=== PATIENT | female | born 1965 | race Caucasian/White ===

== ENCOUNTER → 2017-04-14 | Outpatient (CLI) | payer BC ==
--- NOTE | 2017-04-14 20:27 | WWHP ---
DATE OF DICTATION: 04/14/2017 CHIEF COMPLAINT: The patient is here for her routine gynecologic exam. HISTORY OF PRESENT ILLNESS: This is a 51-year-old G4, P3-1-0-3 with an LMP of 08/2014. Her last pelvic exam was in 2014. She is without gynecologic complaints. She denies any intermenstrual bleeding. Her last mammogram was on 02/26/17 and follow-up left diagnostic mammogram and left ultrasound were recommended in 6 months. PAST MEDICAL HISTORY: 1. Skin cancer which was basal cell from her back in the past. 2. Mitral valve prolapse which causes her no problems. 3. History of microscopic hematuria with a thorough workup by Dr. Marinelli. Dr. Chasity Ramires is her primary care physician. MEDICATIONS: Multivitamin daily, but she does not consistently take them. ALLERGIES: NO KNOWN DRUG ALLERGIES. PAST SURGICAL HISTORY: 1. D&C for bleeding. 2. Rhinoplasty in the past. PAST OB HISTORY: Three term vaginal deliveries, but she did have one 20-week pre-term delivery which did not survive. PAST LIGHTER HISTORY: She has been menopausal since 2013 and has no history of STDs. SOCIAL HISTORY: She denies tobacco and drug use and has about 1 to 2 alcoholic drinks per week. 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 FAMILY HISTORY: Sister had breast cancer at age 62. Brother had skin cancer. Father had an VT and chronic hypertension. Mother had cataracts. REVIEW OF SYSTEMS: She denies respiratory, cardiac or GI problems. PHYSICAL EXAM: Blood pressure 139/72. Height 5 feet 3 inches. Weight 115 pounds. Temperature 94.2, pulse 83. This is a well-developed, well-nourished white female who is alert and oriented x3, in no acute distress. HEENT is within normal limits. NECK: Supple without mass or thyromegaly. CHEST AND LUNGS: Clear to auscultation. HEART: Regular rate and rhythm. Breasts are without mass or discharge. Axillary exam is negative for adenopathy. BACK: Negative for CVA tenderness. ABDOMEN: Soft, nontender, without palpable masses. PELVIC EXAM: Normal external genitalia without significant atrophy. Cervix: there is benign-appearing mucosal growth at the right edge of the cervical os. This is smooth and slightly darker than the surrounding mucosa. This measures approximately 8 x 5 mm and appears very benign. There is no unusual discharge. There is no cervical motion tenderness. There is no evidence of prolapse. The uterus is slightly retroverted, nongravid size and nontender. There are no palpable adnexal masses or tenderness. Rectovaginal exam is negative for mass or tenderness and is negative for occult blood. EXTREMITIES: Nontender. IMPRESSION: A 51-year-old menopausal female with a benign-appearing small mucosal growth at the cervical os. Differential diagnosis will include benign mucosal growth, cervical polyp and nabothian cyst. All of these would be benign. PLAN: 1. Pap smear was performed. 2. Self breast examination was discussed. 3. We discussed the cervical mucosal growth. We have discussed the option of removing this for evaluation. We have also discussed conservative management. We have decided to proceed with conservative management. She will return in 6 months for recheck to make sure it has not changed, and also she was instructed to call if she is having problems, including post-coital or intermenstrual bleeding. 4. She will also have a mammogram done with ultrasound on the left side in 6 months as well. 5. She will also return in one year and p.r.n. MTDD
== END | disposition home or self-care (01) ==
LOC: WWCWWP 10:44
PROVIDERS: ATTEND Obstetrics & Gynecology
DX: Z53.9 Procedure and treatment not carried out, unspecified reason (principal)

== ENCOUNTER → 2018-03-30 | Outpatient (CLI) | payer BC ==
--- NOTE | 2018-03-31 08:28 | MM ---
Reason for exam: follow-up at short interval from prior study. Last mammogram was performed 7 months ago. History: Patient is postmenopausal and has history of other cancer at age 45. Family history of breast cancer in 2 maternal aunts and breast cancer in sister at age 63. Physical Findings: Nurse Summary: 1cm nodule in the left breast at 9 o'clock (nurse desiree). MG 3D Diag Mammo W/Cad NAYANA Bilateral CC and MLO view(s) were taken. Prior study comparison: September 08, 2017, left breast MG 3d diag mammo w/cad LT. February 26, 2017, bilateral MG diagnostic mammo w CAD NAYANA. The breast tissue is heterogeneously dense. This may lower the sensitivity of mammography. There is chronic nodularity in the right breast. Stable 1 o'clock central left breast nodularity for 2 years now. These results were verbally communicated with the patient and result sheet given to the patient on 03/30/18. ASSESSMENT: Incomplete: need additional imaging evaluation, BI-RAD 0 RECOMMENDATION: Ultrasound of the left breast.
--- NOTE | 2018-03-31 08:38 | USB ---
Reason for exam: additional evaluation requested from abnormal screening. History: Patient is postmenopausal and has history of other cancer at age 45. Family history of breast cancer in 2 maternal aunts and breast cancer in sister at age 63. US Breast LT Left complete breast ultrasound includes all four quadrants, the retroareolar region and axilla. Finding demonstrates mild duct ectasia at the nipple. Noted at the medial subareolar region, corresponding to the nurse detected palpable site. Otherwise, no solid or cystic lesion. The previous 1 o'clock lesion has resolved. These results were verbally communicated with the patient and result sheet given to the patient on 03/30/18. ASSESSMENT: Benign, BI-RAD 2 RECOMMENDATION: Routine screening mammogram of both breasts in 1 year. TETED
== END | disposition home or self-care (01) ==
LOC: RADMAMWWP 13:18
PROVIDERS: ATTEND Obstetrics & Gynecology
DX: R92.8 Other abnormal and inconclusive findings on diagnostic imaging of breast (principal)
CPT/HCPCS: 77062; 77066

== ENCOUNTER → 2020-10-23 | Outpatient (CLI) | payer SELFPAY ==
[2020-10-23 14:06] VITALS: BP 136/74; PULSE 89; RESP 18; TEMP 98.1
--- NOTE | 2020-10-23 14:58 | P.HPOB ---
History of Present Illness H&P Date: 10/23/20 Chief Complaint: The patient is here for her routine gynecologic exam and ma mmogram. This is a 54-year-old with an LMP of 2013. The patient is without gynecologic complaints and denies any postmenopausal bleeding. Her last Pap smear was done on 04/14/2017 which showed ASCUS with negative high-risk HPV testing. She also has a known cervical polypoid growth which she states is not causing her any problems or causing any bleeding. Review of Systems She has lost about 7 pounds over the past 3 years and she attributes this to increased stress related to marital problems. She denies respiratory or cardiac problems. GI: Occasional nausea which she attributes to stress. She is seeing a doctor for this later this month. Past Medical History Past Medical History: Cancer, Mitral Valve Prolapse (MVP) Additional Past Medical History / Comment(s): Basal cell skin cancer. History of microscopic hematuria (saw Dr. Marinelli). 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 Previous 20 week delivery which did not survive. History of Any Multi-Drug Resistant Organisms: None Reported Additional Past Surgical History / Comment(s): D&C and rhinoplasty. Past Psychological History: No Psychological Hx Reported Smoking Status: Never smoker Past Alcohol Use History: Occasional (2 per week) Past Drug Use History: None Reported Additional History: She has been since 2001 and she states she has had some marital problems especially since approximately 2016. 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 - Past Family History Sister(s) Family Medical History: Cancer Additional Family Medical History / Comment(s): Breast cancer at age 62. Brother(s) Family Medical History: Cancer Additional Family Medical History / Comment(s): Skin cancer. Father Family Medical History: Hypertension, Myocardial Infarction ([place]) Mother Additional Family Medical History / Comment(s): Cataracts. Medications and Allergies Home Medications Medication Instructions Recorded Confirmed Type Ascorbic Acid [Vitamin C] 250 mg PO DAILY 10/23/20 10/23/20 History Cholecalciferol [Vitamin D3 (25 2,000 unit PO DAILY 10/23/20 10/23/20 History Mcg = 1000 Iu)] Multivitamin [Multivitamins Adult 1 each PO DAILY 10/23/20 10/23/20 History Gummies] Valerian Root 100 mg PO DAILY 10/23/20 10/23/20 History Vitamin A 8,000 unit PO DAILY 10/23/20 10/23/20 History Allergies Allergy/AdvReac Type Severity Reaction Status Date / Time No Known Allergies Allergy Unverified 10/23/20 14:01 Exam Vital Signs Temp Pulse Resp BP Pulse Ox 10/23/20 14:04 98.1 F 89 18 136/74 100 Intake and Output 10/22/20 10/23/20 10/23/20 22:59 06:59 14:59 Other: Weight 48.988 kg Height 5 feet 2 inches, weight 108 pounds, BMI 19.8. This is a well-developed well-nourished white female who is alert and oriented times 3 in no acute distress. HEENT: Within normal limits. NECK: Supple without mass or thyromegaly. CHEST AND LUNGS: Clear to auscultation. HEART: Regular rate and rhythm. BREASTS: Are without mass or discharge. AXILLARY EXAM: Negative for adenopathy. BACK: Negative for CVA tenderness. ABDOMEN: Soft, nontender, without palpable masses. PELVIC EXAM: Normal external genitalia with mild atrophy. Vagina appear normal with mild atrophy. The cervix has a polypoid growth at approximately the 8 o'clock position which is smooth and appears fluid-filled and measures approximate 10 x 7 mm. It seems to be on a stalk which is thin. There is no unusual discharge. There is no evidence of prolapse. The uterus is midposition, nongravid size and nontender. There are no palpable adnexal masses or tenderness. RECTAL EXAM: Rectovaginal exam is negative for mass or tenderness and is negative for occult blood. EXTREMITIES: Nontender. IMPRESSION: 1. 54-year-old menopausal female with abundant benign-appearing cervical polyp at the 8 o'clock position. It seems to be mobile and on a thin stalk. Differential diagnosis includes cervical polyp and possible prolapsed endometrial polyp. The patient states this is asymptomatic. This was seen at her prior examination in 2017. 2. Previous ASCUS Pap smear with negative high-risk HPV testing on 04/14/2017. PLAN: 1. Pap smear cotest and was performed. 2. Self breast awareness was discussed with the patient. 3. Screening mammogram will be done today. 4. Osteoporosis prevention was discussed. I have stressed the importance of adequate calcium, vitamin D and regular exercise. Recommended amounts of calcium and vitamin D were also discussed. 5. We have discussed the option of removal of the cervical polypoid growth. She states it is increased slightly in size, but she states it is not causing her any problems and is declining removal at this time. She will let me know if she changes her mind about this or if it is causing problems. 6. I have recommended screening colonoscopy based on her age and since she has not had this done before. She states she will discuss this with her PCP Dr. Ramires. 7. She is declining any STD testing at this time. 8. She was advised to return in one year for her annual well woman exam.
--- NOTE | 2020-10-24 13:42 | MM ---
Reason for exam: screening (asymptomatic). Last mammogram was performed 2 years and 7 months ago. History: Patient is postmenopausal and has history of other cancer at age 45. Family history of breast cancer in 2 maternal aunts and breast cancer in sister at age 63. Physical Findings: A clinical breast exam by your physician is recommended on an annual basis and results should be correlated with mammographic findings. MG 3D Screening Mammo W/Cad Bilateral CC and MLO view(s) were taken. Prior study comparison: March 30, 2018, bilateral MG 3d diag mammo w/cad NAYANA. September 08, 2017, left breast MG 3d diag mammo w/cad LT. The breast tissue is heterogeneously dense. This may lower the sensitivity of mammography. There is chronic nodularity in the right breast. Nodular asymmetric density superior left MLO view is more defined and incompletely disperses on 3D. ASSESSMENT: Incomplete: need additional imaging evaluation, BI-RAD 0 RECOMMENDATION: Special view mammogram of the left breast. (3D) If lesion persists on supplemental views, image directed ultrasound is recommended. [facility] will attempt to contact patient to return for supplemental views and ultrasound if indicated.
== END | disposition home or self-care (01) ==
LOC: WWCWWP 13:47
PROVIDERS: ATTEND Obstetrics & Gynecology
DX: Z12.31 Encounter for screening mammogram for malignant neoplasm of breast (principal)
CPT/HCPCS: 77063; 77067

== ENCOUNTER → 2020-11-09 | Outpatient (CLI) | payer OTHER ==
--- NOTE | 2020-11-12 08:37 | MM ---
Reason for exam: additional evaluation requested from abnormal screening. Last mammogram was performed 1 month ago. History: Patient is postmenopausal and has history of other cancer at age 45. Family history of breast cancer in 2 maternal aunts and breast cancer in sister at age 63. Took hormonal contraceptives beginning at age 35. Physical Findings: Nurse did not find any significant physical abnormalities on exam. MG 3D Work Up W/Cad LT LM and spot compression MLO view(s) were taken of the left breast. Prior study comparison: October 23, 2020, bilateral MG 3d screening mammo w/cad. March 30, 2018, bilateral MG 3d diag mammo w/cad NAYANA. The breast tissue is heterogeneously dense. This may lower the sensitivity of mammography. There is no discrete abnormality including area of concern left upper MLO view. No significant new findings when compared with previous films. These results were verbally communicated with the patient and result sheet given to the patient on 11/09/20. ASSESSMENT: Benign, BI-RAD 2 RECOMMENDATION: Return to routine screening mammogram schedule for both breasts.
== END | disposition home or self-care (01) ==
LOC: RADMAMWWP 14:59
PROVIDERS: ATTEND Obstetrics & Gynecology
DX: R92.8 Other abnormal and inconclusive findings on diagnostic imaging of breast (principal)
CPT/HCPCS: 77061; 77065

== ENCOUNTER → 2022-12-02 | Outpatient (CLI) | payer OTHER ==
[2022-12-02 10:37] VITALS: BP 122/87; PULSE 89; RESP 16; TEMP 97.8
--- NOTE | 2022-12-02 11:31 | P.HPOB ---
History of Present Illness H&P Date: 12/02/22 Chief Complaint: The patient is here for her routine gynecologic exam and ma mmogram. This is a 57-year-old 103 with an LMP of 2013. The patient is without gynecologic complaints and denies any postmenopausal bleeding. She has a known cervical polyp which has been followed conservatively. She desires to continue conservative management at this time. Review of Systems She is getting about 8 pounds over the past year. She denies respiratory or cardiac problems. GI: Occasional loose stools which seems to occur when she has greater stress. She has been under greater stress since 2017, when marital problems became more stressful. Past Medical History Past Medical History: Cancer, Mitral Valve Prolapse (MVP) Additional Past Medical History / Comment(s): Basal cell skin cancer. History of microscopic hematuria (saw Dr. Marinelli). 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 Previous 20 week delivery which did not survive. History of Any Multi-Drug Resistant Organisms: None Reported Additional Past Surgical History / Comment(s): D&C and rhinoplasty. Past Psychological History: No Psychological Hx Reported Smoking Status: Never smoker Past Alcohol Use History: Occasional (3 glasses of wine per week.) Past Drug Use History: None Reported Additional History: She is currently from her and they have been having menstrual problems since 2017. During this time she has not had sexual relations with anyone but her . 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 - Past Family History Sister(s) Family Medical History: Cancer Additional Family Medical History / Comment(s): Breast cancer at age 62. Brother(s) Family Medical History: Cancer Additional Family Medical History / Comment(s): Skin cancer. Father Family Medical History: Hypertension, Myocardial Infarction ([place]) Mother Additional Family Medical History / Comment(s): Cataracts. Maternal aunt and maternal cousin had breast cancer. Medications and Allergies Home Medications Medication Instructions Recorded Confirmed Type Ascorbic Acid [Vitamin C] 250 mg PO DAILY 10/23/20 12/02/22 History Cholecalciferol [Vitamin D3 (25 2,000 unit PO DAILY 10/23/20 12/02/22 History Mcg = 1000 Iu)] Multivitamin [Multivitamins Adult 1 each PO DAILY 10/23/20 12/02/22 History Gummies] Vitamin A [Vitamin A (8,000 Units 8,000 unit PO DAILY 10/23/20 12/02/22 History = 2,400 MCG)] Allergies Allergy/AdvReac Type Severity Reaction Status Date / Time No Known Allergies Allergy Unverified 12/02/22 10:31 Exam Vital Signs Temp Pulse Resp BP Pulse Ox 12/02/22 10:32 97.8 F 89 16 122/87 97 Intake and Output 12/01/22 12/02/22 12/02/22 22:59 06:59 14:59 Other: Weight 52.617 kg Height 5 feet 3 inches, weight 116 pounds, BMI 20.5. This is a well-developed well-nourished white female who is alert and oriented times 3 in no acute distress. HEENT: Within normal limits. NECK: Supple without mass or thyromegaly. CHEST AND LUNGS: Clear to auscultation. HEART: Regular rate and rhythm. BREASTS: Are without mass or discharge. AXILLARY EXAM: Negative for adenopathy. BACK: Negative for CVA tenderness. ABDOMEN: Soft, nontender, without palpable masses. PELVIC EXAM: Normal external genitalia with mild atrophy. Vagina appear normal is mild atrophy. The cervix is anterior and there is a stable benign-appearing endocervical polyp measuring approximately 10 x 7 mm. The cervix is otherwise unremarkable. There is no unusual discharge. There is no evidence of prolapse. The uterus is retroverted, nongravid size and nontender. There are no palpable adnexal masses or tenderness. RECTAL EXAM: Rectovaginal exam is negative for mass or tenderness and is negative for occult blood. EXTREMITIES: Nontender. IMPRESSION: 1. 57-year-old menopausal female with benign-appearing cervical polyp at the endocervix which is stable in size and measures approximately 10 x 7 mm. This is asymptomatic. 2. Family history of breast cancer and a sister, maternal aunt, and maternal cousin. PLAN: 1. Pap smear was deferred since she had a negative Pap smear cotest on 10/23/2020. 2. Self breast awareness was discussed with the patient. We have also discussed symptoms associated with inflammatory breast cancer. 3. Screening mammogram will be done today. 4. We have discussed the cervical polyp. We have discussed how it can be removed, but she would like to continue with conservative management. She will call if she is having any problems such as vaginal bleeding or unusual discharge. 5. She is currently from her . She states she does not think there is any need to do STD testing at this time. 6. We have discussed her family history of breast cancer. We have also discussed the option of cancer genetic counseling and testing. She will consider this and would let me know if she wants to proceed with this. She will also try to find out if her aunt or cousin has had cancer genetic testing done. 7. She has not had a Covid vaccination, but has had Covid in the past. She understands Covid vaccinations are available and she will consider this. 8. She continues to go to a counselor regarding distress associated with her menstrual problems. 9. She was advised to return in one year for her annual well woman exam and as needed.
--- NOTE | 2022-12-03 08:00 | MM ---
Reason for Exam: Screening (asymptomatic). Last mammogram was performed 2 year(s) and 1 month(s) ago. Patient History: Menarche at age 13. First Full-Term at age 20. Postmenopausal. Other cancer, age 45. Hormonal Contraceptives, starting at age 35. Maternal aunt had breast cancer. Maternal aunt had breast cancer. Sister had breast cancer, age 63. Risk Values: Yamel 5 year model risk: 2.3%. NCI Lifetime model risk: 13.0%. Prior Study Comparison: 03/30/2018 Bilateral Diagnostic Mammogram, [facility]. 10/23/2020 Bilateral Screening Mammogram, [facility]. 11/09/2020 Left Diagnostic Mammogram, [facility]. Tissue Density: The breast tissue is heterogeneously dense. This may lower the sensitivity of mammography. Findings: Analyzed By CAD. There is no suspicious group of microcalcifications or new suspicious mass in either breast. Stable appearing right breast cyst. Overall Assessment: Benign, BI-RAD 2 Management: Screening Mammogram of both breasts in 1 year. A clinical breast exam by your physician is recommended on an annual basis and results should be correlated with mammographic findings. [facility] will attempt to contact patient to return for supplemental views and ultrasound if indicated. Electronically signed and approved by: Terrence Heller DO
== END ==
LOC: WWCWWP 10:23
PROVIDERS: ATTEND Obstetrics & Gynecology
DX: Z80.3 Family history of malignant neoplasm of breast (principal); Z12.31 Encounter for screening mammogram for malignant neoplasm of breast
CPT/HCPCS: 77063; 77067

== ENCOUNTER → 2025-01-31 | Outpatient (CLI) | payer OTHER ==
[2025-01-31 14:32] VITALS: BP 142/87; PULSE 82; RESP 16; TEMP 97.6
--- NOTE | 2025-01-31 15:33 | P.HPOB ---
History of Present Illness H&P Date: 01/31/25 Chief Complaint: Patient is here for her routine gynecologic exam. This is a 59-year-old with an LMP of 2013. The patient thinks she might have a vaginal infection since about 10 days ago she noticed watery discharge that was clear and now is slightly yellowish. She has also had some vulvar itching and has noticed a slight odor. About 8 days ago she used a 1 day Monistat cream which was [id number]. She did not notice improvement. She is otherwise without gynecologic complaints and denies any postmenopausal bleeding. Review of Systems Her weight has been stable. She denies respiratory or cardiac problems. GI: Occasional "nervous stomach" when she gets anxious. Past Medical History Past Medical History: Cancer, Mitral Valve Prolapse (MVP) Additional Past Medical History / Comment(s): Basal cell skin cancer. History of microscopic hematuria (saw Dr. Marinelli). 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 Previous 20 week delivery which did not survive. History of Any Multi-Drug Resistant Organisms: None Reported Additional Past Surgical History / Comment(s): D&C and rhinoplasty. Past Psychological History: No Psychological Hx Reported Smoking Status: Never smoker Past Alcohol Use History: Occasional (2 Drinks per month.) Past Drug Use History: None Reported Additional History: She and her have had some marital problems since 2016 and they have been . 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 They continue to have occasional sexual relations which she believes is monogamous. - Past Family History Sister(s) Family Medical History: Cancer Additional Family Medical History / Comment(s): Breast cancer at age 62. Brother(s) Family Medical History: Cancer Additional Family Medical History / Comment(s): Skin cancer. Father Family Medical History: Hypertension, Myocardial Infarction (ID) Mother Additional Family Medical History / Comment(s): Cataracts. Maternal aunt and maternal cousin had breast cancer. Medications and Allergies Home Medications Medication Instructions Recorded Confirmed Type Ascorbic Acid [Vitamin C] 250 mg PO DAILY 10/23/20 01/31/25 History Cholecalciferol [Vitamin D3 (25 2,000 unit PO DAILY 10/23/20 01/31/25 History Mcg = 1000 Iu)] Multivitamin [Multivitamins Adult 1 each PO DAILY 10/23/20 01/31/25 History Gummies] Vitamin A [Vitamin A (8,000 Units 8,000 unit PO DAILY 10/23/20 01/31/25 History = 2,400 MCG)] Chase-3/Dha/Epa/Fish Oil [Fish Oil 1 capsule PO DAILY 01/31/25 01/31/25 History 1,000 mg Softgel] Allergies Allergy/AdvReac Type Severity Reaction Status Date / Time No Known Allergies Allergy Unverified 01/31/25 14:10 Exam Vital Signs Temp Pulse Resp BP Pulse Ox 01/31/25 14:25 97.6 F 82 16 142/87 100 Intake and Output 01/31/25 01/31/25 01/31/25 06:59 14:59 22:59 Other: Weight 52.617 kg Height 5 feet 1 inch, weight 116 pounds, BMI 21.9. This is a well-developed well-nourished white female who is alert and oriented times 3 in no acute distress. HEENT: Within normal limits. NECK: Supple without mass or thyromegaly. CHEST AND LUNGS: Clear to auscultation. HEART: Regular rate and rhythm. BREASTS: Are without mass or discharge. AXILLARY EXAM: Negative for adenopathy. BACK: Negative for CVA tenderness. ABDOMEN: Soft, nontender, without palpable masses. PELVIC EXAM: Normal external genitalia with mild atrophy. Cervix and vagina appear reveals mild atrophic changes. The cervix has a polypoid mass protruding from the os measuring approximately 10 x 9 mm and appears cystic with slight surface septations. The polypoid mass seems fairly mobile and seems to be on a thin stalk. There is no unusual discharge visible, however there is a slight odor noted. There is no evidence of prolapse. The uterus is retroverted, nongravid size and nontender. There are no palpable adnexal masses or tenderness. RECTAL EXAM: Rectovaginal exam is negative for mass or tenderness and is negative for occult blood. EXTREMITIES: Nontender. IMPRESSION: 1. 59-year-old menopausal female 10-day history of watery discharge with odor and vulvar itching. She states she has noticed slight improvement today. Differential diagnosis will include bacterial vaginosis, improved Diana vaginitis after self treatment, physiologic discharge, and possible discharge related to the cervical polyp. Trichomonas, gonorrhea, and chlamydia are also possibilities. 2. Cervical polyp on a thin stalk measuring approximately 10 x 9 mm which is a slightly different appearance compared to the last year and is now there are slight surface septations noted. 3. She and her have been but still have sexual relations. PLAN: 1. Pap smear cotest was performed. 2. Self breast awareness was discussed with the patient. We have also discussed symptoms associated with inflammatory breast cancer. 3. Screening mammogram is scheduled for 02/09/2025 and the order slip was given to the patient for this. 4. Affirm vaginitis panel has been obtained from the vagina. GC and Chlamydia testing were also obtained from the cervix. 5. Because there has been some change with the cervical polyp, I have recommended removal for evaluation. There is also a slight chance that this could be related to her vaginal discharge and vaginitis symptoms. She states she will call back to schedule this since she is very busy with her work at this time. I have stressed the importance of removing this for further evaluation. 6. Osteoporosis prevention was discussed. I have stressed the importance of adequate calcium, vitamin D and regular exercise. Recommended amounts of ca lcium and vitamin D were also discussed. I have recommended bone density testing based on her age. This is scheduled for 02/09/2025. The order slip was given to the patient for this. 7. She was advised to return in one year for her annual well woman exam as needed.
[2025-02-01 07:14] LABS: Gardnerella Negative (Negative); Trichomonas Negative (Negative)
[2025-02-01 13:50] LABS: C. trachomatis,PCR Negative (Negative); N. gonorrhoeae,PCR Negative (Negative)
--- NOTE | 2025-02-01 20:19 | P.PN ---
Progress Note - Text Progress Note Date: 02/01/25 OUTPATIENT FOLLOW-UP NOTE TEST(S)/RESULTS: Affirm vaginitis panel done on 01/31/2025 was negative for Diana, Gardnerella, and trichomonas. METHOD OF NOTIFICATION: The patient was notified by phone on 02/01/2025. PATIENT COMMENTS: The patient states there was some improvement in the discharge over the last couple of days and he does not really itching or irritation that is the problem, but there is still some slight discharge. DIAGNOSIS: Negative affirm vaginitis panel. DISCUSSION: We will also await GC and Chlamydia testing which was also obtained. The Pap smear with HPV testing is also pending. It is possible that she had treated herself for a Diana vaginal infection and there is still some residual discharge. I have recommended that she make an appointment for the cervical polyp removal. PLAN: As above.
== END ==
LOC: WWCWWP 13:32
PROVIDERS: ATTEND Obstetrics & Gynecology
DX: N95.1 Menopausal and female climacteric states (principal); N84.1 Polyp of cervix uteri
CPT/HCPCS: 87480; 87491; 87510; 87591; 87660